=== PATIENT | male | born 1975 | race Caucasian/White ===

== ENCOUNTER 2020-02-23 03:51 | Emergency (ER) | payer SELFPAY ==
[2020-02-23] MEDS ORDERED: OXYCODONE-ACETAMINOPHEN 5-325 MG TABLET PO ONE (04:40)
[2020-02-23] MEDS ORDERED: ONDANSETRON 4 MG TAB.RAPDIS PO ONE (04:40)
--- NOTE | 2020-02-23 04:42 | ER Document Report ---
ED Medical Screen (RME) - General Chief Complaint: Testicular Pain Stated Complaint: TESTICLE PAIN Time Seen by Provider: 02/23/20 04:40 Notes: 44-year-old male with chief complaint of testicular pain. Patient states pain radiates into the abdomen and feels like it goes around to his back. He states that the area seems swollen and has become intermittently more painful over the past 2 days or so. He denies trauma or history of the same. He denies history of kidney stones. He reports pain with urination. He denies bleeding or discharge from the penis. Denies fever/chills, he states he vomited once from the pain. Remote history of inguinal hernia repair, no other surgeries reported. Physical Exam - Vital signs Vitals: Temp Pulse Resp BP Pulse Ox 97.9 F 89 20 143/96 H 98 02/23/20 03:56 02/23/20 03:56 02/23/20 03:56 02/23/20 03:56 02/23/20 03:56 - Genitourinary Inspection: No: Blood at meatus, Penile discharge Scrotum: Other - There is significant tenderness to the left scrotum and testicle generally but no overt swelling, abnormal erythema, cellulitis, induration, fluctuance. Exam limited by triage location. Ashely STAPLETON present during exam. Course - Re-evaluation Re-evalutation: Patient has testicular tenderness on exam but no overt cellulitis, abscess, or other concerning findings. Work-up pending. I have greeted and performed a rapid initial assessment of this patient. A comprehensive ED assessment and evaluation of the patient, analysis of test results and completion of the medical decision making process will be conducted by additional ED providers. - Vital Signs Vital signs: Temp Pulse Resp BP Pulse Ox 97.9 F 89 20 143/96 H 98 02/23/20 03:56 02/23/20 03:56 02/23/20 03:56 02/23/20 03:56 02/23/20 03:56
[2020-02-23 05:25] LABS: ABSOLUTE BASOPHILS # (AUTO) 0.1 10^3/uL (0.0-0.2); ABSOLUTE EOSINOPHILS # (AUTO) 0.3 10^3/uL (0.0-0.6); ABSOLUTE LYMPHOCYTES (AUTO) 2.4 10^3/uL (0.5-4.7); ABSOLUTE MONOCYTES (AUTO) 0.5 10^3/uL (0.1-1.4); ABSOLUTE NEUT (AUTO) 5.2 10^3/uL (1.7-8.2); BASOPHILS % (AUTO) 0.8 % (0-2); EOSINOPHILS % (AUTO) 3.4 % (0-6); HEMATOCRIT 40.9 % (37.9-51.0); HEMOGLOBIN 13.9 g/dL (13.5-17.0); LYMPHOCYTES % (AUTO) 28.6 % (13-45); MEAN CORPUSCULAR HEMOGLOBIN 30.2 pg (27.0-33.4); MEAN CORPUSCULAR VOLUME 89 fl (80-97); MONOCYTES % (AUTO) 5.8 % (3-13); PLATELET COUNT 259 10^3/uL (150-450); SEGMENTED NEUTROPHILS % (AUTO) 61.4 % (42-78); TOTAL CELLS COUNTED % (AUTO) 100 %; WHITE BLOOD COUNT 8.5 10^3/uL (4.0-10.5)
[2020-02-23 05:36] LABS: ALBUMIN 4.1 g/dL (3.5-5.0); ALKALINE PHOSPHATASE 135 U/L (38-126); ANION GAP 9 (5-19); ASPARTATE AMINO TRANSFERASE 50 U/L (17-59); BILIRUBIN,DIRECT 0.3 mg/dL (0.0-0.4); BILIRUBIN,TOTAL 0.4 mg/dL (0.2-1.3); BLOOD UREA NITROGEN 16 mg/dL (7-20); CARBON DIOXIDE 27 mmol/L (22-30); CHLORIDE 104 mmol/L (98-107); GLUCOSE 136 mg/dL (75-110); POTASSIUM 3.9 mmol/L (3.6-5.0); TOTAL PROTEIN 7.4 g/dL (6.3-8.2)
[2020-02-23 05:37] LABS: APPEARANCE,URINE CLEAR; BILIRUBIN,URINE NEGATIVE (NEGATIVE); COLOR,URINE YELLOW; GLUCOSE, URINE NEGATIVE (NEGATIVE); KETONES,URINE NEGATIVE (NEGATIVE); LEUKOCYTE ESTERASE,URINE NEGATIVE (NEGATIVE); NITRITE,URINE NEGATIVE (NEGATIVE); PROTEIN,URINE NEGATIVE (NEGATIVE)
[2020-02-23 05:41] LABS: ADD MANUAL MICROSCOPIC YES
[2020-02-23 05:42] LABS: WBC,URINE RARE /HPF
[2020-02-23 05:43] LABS: CALCIUM OXALATE CRYSTALS,UR RARE /HPF
--- NOTE | 2020-02-23 06:26 | RADIOLOGY REPORT (SQ) ---
Ultrasound scrotum and testicles on 02/23/2020 at 5:55 AM CLINICAL INDICATION: Left testicular pain COMPARISON: None FINDINGS: Multiple sonographic images are obtained throughout the scrotum and testicles, both transverse and sagittal images are obtained. Bilateral testicles are homogeneous in echotexture without evidence of an intratesticular mass. Flow is demonstrated within both testicles without evidence of torsion or unilateral increased flow to suggest epididymoorchitis. There is a left-sided varicocele. No other extratesticular abnormality is noted. IMPRESSION: Left-sided varicocele, otherwise unremarkable.
[2020-02-23 08:14] LABS: CHLAM PCR NOT DETECTED (NOT DETECT)
[2020-02-23] MEDS ORDERED: KETOROLAC TROMETHAMINE 60 MG/2 ML SDV IM ONE (08:16)
--- NOTE | 2020-02-23 08:21 | ER Document Report ---
ED GI/ - General Chief Complaint: Scrotal Pain, Acute Onset Stated Complaint: TESTICLE PAIN Time Seen by Provider: 02/23/20 04:40 Notes: CHIEF COMPLAINT: Left testicular pain for 2 months HPI: 44-year-old male presenting with left testicular pain intermittently for 2 months. Last night pain became worse he felt like it radiated up into the abdomen and he had one episode of nausea vomiting. No dysuria. Has not seen a PCP for evaluation of this issue. Denies any abdominal pain or nausea currently ROS: See HPI - all other systems were reviewed and are otherwise negative Constitutional: no fever Eyes: no drainage, no blurred vision ENT: no runny nose, no sore throat Cardiovascular: no chest pain Resp: no SOB, no cough GI: no vomiting, no diarrhea, positive abdominal pain last night : no dysuria, positive testicular pain Integumentary: no rash Allergy: no hives Musculoskeletal: no extremity pain or swelling Neurological: no numbness/tingling, no weakness MEDICATIONS: I agree with the patient medications as charted by the RN. ALLERGIES: I agree with the allergies as charted by the RN. PAST MEDICAL HISTORY/PAST SURGICAL HISTORY: Reviewed and agree as charted by RN. SOCIAL HISTORY: Reviewed and agree as charted by RN. FAMILY HISTORY: No significant familial comorbid conditions directly related to patient complaint EXAM: Reviewed vital signs as charted by RN. CONSTITUTIONAL: Alert and oriented and responds appropriately to questions. Well-appearing; well-nourished HEAD: Normocephalic; atraumatic EYES: Conjunctivae clear, sclerae non-icteric ENT: normal nose; no rhinorrhea; moist mucous membranes NECK: Supple without meningismus; non-tender; no cervical lymphadenopathy, no masses CARD: symmetric distal pulses RESP: Normal chest excursion without splinting or tachypnea ABD/GI: Normal bowel sounds; non-distended; soft, non-tender, no rebound, no guarding; no palpable organomegaly or masses. : Circumcised male. No tenderness or mass on palpation of the right testicle. Mild tenderness on palpation of the left testicle with small varicocele palpable. No visible or palpable inguinal or scrotal hernias. No visible lesions. No urethral discharge. BACK: The back appears normal and is non-tender to palpation, there is no CVA tenderness EXT: Normal ROM in all joints; non-tender to palpation; no cyanosis, no effusions, no edema SKIN: Normal color for age and race; warm; dry; good turgor; no acute lesions noted NEURO: Moves all extremities equally; Motor and sensory function intact PSYCH: The patient's mood and manner are appropriate. Grooming and personal hygiene are appropriate. MDM: 44-year-old male intermittent pain left testicle for 2 months, small varicocele on ultrasound no torsion no epididymitis. Lab work does not show acute abnormalities, urine was clean. Offered CT to evaluate for kidney stone which patient declines. 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 daily Past Medical History - Social History Smoking Status: Current Every Day Smoker Family History: Reviewed & Not Pertinent Physical Exam - Vital signs Vitals: Temp Pulse Resp BP Pulse Ox 97.9 F 89 20 143/96 H 98 02/23/20 03:56 02/23/20 03:56 02/23/20 03:56 02/23/20 03:56 02/23/20 03:56 Course - Vital Signs Vital signs: Temp Pulse Resp BP Pulse Ox 97.9 F 89 20 143/96 H 98 02/23/20 03:56 02/23/20 03:56 02/23/20 03:56 02/23/20 03:56 02/23/20 03:56 - Laboratory Result Diagrams: 02/23/20 05:06 02/23/20 05:06 Laboratory results interpreted by me: 02/23/20 02/23/20 04:11 05:06 Glucose 136 H ALT 72 H Alkaline Phosphatase 135 H Urine Urobilinogen 4.0 H Discharge - Discharge Clinical Impression: Testicular pain, left, Varicocele present on ultrasound of scrotum Condition: Stable Disposition: HOME, SELF-CARE Additional Instructions: Take the Voltaren for pain. No sexual intercourse for 10 days. Follow-up closely with urology for further evaluation and treatment call for appointment Prescriptions: Diclofenac Sodium [Voltaren 50 Mg Tablet.] 50 mg PO BID #20 tablet. Referrals: HAMIDA RICKETTS MD [NO LOCAL MD] - Follow up as needed
[2020-02-23 08:38] VITALS: BP 133/75
== END 2020-02-23 08:38 | disposition home or self-care (01) ==
LOC: ER 03:51
DX: I86.1 Scrotal varices (principal); N50.812 Left testicular pain; R11.2 Nausea with vomiting, unspecified; R10.9 Unspecified abdominal pain; F17.200 Nicotine dependence, unspecified, uncomplicated
CPT/HCPCS: 99284; 96372; 36415; 85025; 80053; 81001; 87491; 87591; 76870; 93976; J1885; S0119